=== PATIENT | female | born 1975 | race Two or more races ===

== ENCOUNTER 2022-03-27 12:15 | Inpatient (IN) | payer OTHER ==
[~2022-03-27] VITALS: Ht 154.9 cm; Wt 71.7 kg
[2022-04-01] MEDS ORDERED: DIPHENHYDR50 MG/1 M1 (08:02)
[2022-04-01] MEDS ORDERED: DEXAMETHASO4 MG/1 M1 (08:02)
[2022-04-01] MEDS ORDERED: OMEPRAZOLE40 MG (08:02)
[2022-04-01] MEDS ORDERED: FAMOTIDINE20 MG/2 M1 (08:02)
== END 2022-04-04 14:03 | disposition home or self-care (01) | DRG 734 ==
LOC: O/R 04-01 05:22 → OB/GYN 04-01 05:22
PROVIDERS: ADMIT Specialist; ATTEND Specialist
PROC: 07TC0ZZ Resection of Pelvis Lymphatic, Open Approach (ICD-10-PCS; 2022-04-01)
PROC: 0UT90ZZ Resection of Uterus, Open Approach (ICD-10-PCS; 2022-04-01)
PROC: 0UT70ZZ Resection of Bilateral Fallopian Tubes, Open Approach (ICD-10-PCS; 2022-04-01)
PROC: 0UT20ZZ Resection of Bilateral Ovaries, Open Approach (ICD-10-PCS; 2022-04-01)
PROC: 0DNW0ZZ Release Peritoneum, Open Approach (ICD-10-PCS; 2022-04-01)
PROC: 0TN70ZZ Release Left Ureter, Open Approach (ICD-10-PCS; 2022-04-01)
PROC: 0TN60ZZ Release Right Ureter, Open Approach (ICD-10-PCS; 2022-04-01)
PROC: 0DBU0ZZ Excision of Omentum, Open Approach (ICD-10-PCS; 2022-04-01)
PROC: 07TD0ZZ Resection of Aortic Lymphatic, Open Approach (ICD-10-PCS; principal; 2022-04-01 07:00)
DX: C54.1 Malignant neoplasm of endometrium (principal); C56.3 Malignant neoplasm of bilateral ovaries; C78.6 Secondary malignant neoplasm of retroperitoneum and peritoneum; Z20.822 Contact with and (suspected) exposure to COVID-19; D25.1 Intramural leiomyoma of uterus